=== PATIENT | male | born 1985 | race Caucasian/White ===

== ENCOUNTER 2016-09-08 12:51 | Emergency (ER) | payer OTHER ==
[~2016-09-08] VITALS: Ht 170.2 cm; Wt 79.4 kg
--- NOTE | 2016-09-08 13:03 | NUR ---
Pt ambulatory to bed 3, dr tompkins at bedside for exam.
[2016-09-08 13:57] VITALS: BP 122/74
--- NOTE | 2016-09-08 13:57 | NUR ---
Pt dc'ed home .
== END 2016-09-08 13:58 | disposition home or self-care (01) ==
LOC: ER 12:51
DX: M25.512 Pain in left shoulder (principal); F12.10 Cannabis abuse, uncomplicated
CPT/HCPCS: 73030; A4663

== ENCOUNTER 2017-08-16 13:13 | Emergency (ER) | payer OTHER ==
[~2017-08-16] VITALS: Ht 170.2 cm; Wt 83.9 kg
[2017-08-16 13:53] LABS: *BILIRUBIN,URIN NEGATIVE (NEGATIVE); *BLOOD, URINE Trace-intact (NEGATIVE); *CLARITY,URINE CLEAR (CLEAR); *COLOR,URINE YELLOW (YELLOW); *KETONES,URINE NEGATIVE (NEGATIVE); *PROTEIN,URINE NEGATIVE (NEGATIVE); *UROBILINOGEN,URINE 0.2 E.U./dl (NORMAL); LEUKOCYTE ESTERASE ,URINE NEGATIVE (NEGATIVE); NITRITE, URINE NEGATIVE (NEGATIVE); UGLUCOSE NEGATIVE (NEGATIVE)
--- NOTE | 2017-08-16 14:00 | NUR ---
Dr tompkins at the bedside for MSE.
[2017-08-16 14:01] LABS: BACTERIA,URINE FEW /HPF (NONE SEEN); RBC,URINE 0-3 /HPF (0-3); SQUAMOUS EPITHELIAL CELL,UR FEW /HPF (NONE SEEN); WBC,URINE 0-3 /HPF (0-3)
[2017-08-16] MEDS ORDERED: IV NORMAL SALINE 0 ML ONE (14:12)
[2017-08-16] MEDS ORDERED: IOHEXOL 300MG/ML 100 ML INFUS..BTL ONE (14:12)
[2017-08-16 15:13] VITALS: BP 112/67
== END 2017-08-16 15:15 | disposition home or self-care (01) ==
LOC: ER 13:13
DX: K57.92 Diverticulitis of intestine, part unspecified, without perforation or abscess without bleeding (principal); F12.10 Cannabis abuse, uncomplicated
CPT/HCPCS: A4663; J3490; Q9967